=== PATIENT | male | born 1960 | race Caucasian/White ===

== ENCOUNTER 2020-06-21 07:34 | Day surgery (SDC) | payer BC ==
[~2020-06-21 07:34] MED LIST: Lactated Ringers 1,000 ML IV SCH
[2020-06-21] MEDS ORDERED: Propofol 200 MG/20 ML SDV ONE (08:03)
[2020-06-21] MEDS ORDERED: fentaNYL 100 MCG/2 ML SDV ONE (08:03)
[2020-06-21 09:32] VITALS: PULSE 68
[2020-06-21 09:46] VITALS: BP 143/83
--- NOTE | 2020-06-21 13:48 | OR ---
DATE OF SURGERY: 06/21/2020. REFERRING PROVIDER: AZAR Hernandez PRE-OPERATIVE DIAGNOSES: 1. History of colon polyps. The patient's last colonoscopy was 11/2014 and was normal except for some minimal diverticulosis. 2. Positive family history of colon cancer in father diagnosed at age 60. 3. Coronary artery disease. POST-OPERATIVE DIAGNOSES: 1. Single 3 mm polyp at 40 cm, removed with cold forceps. 2. Mild sigmoid diverticulosis. 3. Normal-appearing terminal ileum. PROCEDURE: Colonoscopy with polypectomy x1 using cold forceps. SURGEON: Gordo Syed M.D. ANESTHESIA: Monitored anesthesia care. BOWEL PREP: Good. Art is a 59-year-old male who was brought to the endoscopy suite after discussing risks and benefits of the procedure. Informed consent was obtained for conscious sedation and colonoscopy with or without biopsy and/or polypectomy. We also discussed possibility of missed lesions. Pre-procedure exam was unremarkable. IV, oxygen, and monitors were placed. The patient was placed in the left lateral decubitus position. Sedation was administered and a digital rectal exam was performed and unremarkable. Colonoscope was passed into the rectum and slowly advanced all the way to the cecum. Cecum was viewed and photographed. Ileocecal valve was intubated and terminal ileum was normal in appearance. The colonoscope was slowly withdrawn and the mucosa was closed observed in a direct circumferential manner. The ascending colon was unremarkable. The transverse colon was unremarkable. The descending colon revealed 3 mm polyp at 40 cm, removed using cold forceps. The sigmoid colon revealed mild diverticulosis. Retroflexion was performed and rectal mucosa was unremarkable. Scope was removed. The patient tolerated the procedure well. The patient was monitored until that baseline status. Discharge instructions were reviewed and the patient was discharged in good condition. COMPLICATIONS: None. TOTAL TIME: 17 minutes. ESTIMATED BLOOD LOSS: Less than 1 mL. RECOMMENDATIONS/FOLLOW-UP: We will await results of path report to determine ideal followup interval. We will have the patient resume his aspirin tomorrow and then he can resume his Plavix Thursday as long as no blood noted in the stools. Of note, the patient also had probable obstructive sleep apnea with sedation with him lying on his left side. I would like to kindly thank Randy Burnham for this referral. DMB: 06/21/2020 10:57:08 MODL: 06/21/2020 13:04:41 /[id number]
== END 2020-06-21 11:00 | disposition home or self-care (01) ==
LOC: VM.SDS 07:34
PROVIDERS: ATTEND Family Medicine
DX: Z12.11 Encounter for screening for malignant neoplasm of colon (principal); D12.6 Benign neoplasm of colon, unspecified; K57.30 Diverticulosis of large intestine without perforation or abscess without bleeding; I25.10 Atherosclerotic heart disease of native coronary artery without angina pectoris; E78.5 Hyperlipidemia, unspecified; I25.2 Old myocardial infarction; E66.9 Obesity, unspecified; Z68.34 Body mass index [BMI] 34.0-34.9, adult; Z79.899 Other long term (current) drug therapy; Z87.891 Personal history of nicotine dependence; Z86.010 Personal history of colon polyps; Z80.0 Family history of malignant neoplasm of digestive organs
CPT/HCPCS: 00812; J2704; J3010; J7120